=== PATIENT | female | born 1985 | race Two or more races ===

== ENCOUNTER 2025-01-11 14:08 | Outpatient (RCR) | payer MEDICAID, SELFPAY | END 2025-01-14 23:59 | disposition home or self-care (01) | LOC: SCTC 14:08 | PROVIDERS: PCP Internal Medicine; Referring Provider Internal Medicine; Visit Provider Nurse Practitioner Family | DX: R74.8 Abnormal levels of other serum enzymes (principal); D75.1 Secondary polycythemia; E66.9 Obesity, unspecified; Z68.42 Body mass index [BMI] 45.0-49.9, adult | CPT/HCPCS: 99212; G0463 ==

== ENCOUNTER 2025-03-25 12:47 | Emergency (ER) | payer MEDICAID, SELFPAY ==
[2025-03-25 12:50] VITALS: BMI 50.1
--- NOTE | 2025-03-25 12:51 | EKG_ITS ---
[facility] Test Date: 2025-03-25 Pat Name: ANDREI SCOTT Department: Room: - Gender: Female System Trainer: : 1985 Requested By: Bishop Medina Order Number: [id number] Reading MD: Bishop Medina Measurements Intervals [place] Rate: 70 P: 38 GA: 146 QRS: 4 QRSD: 83 T: 24 QT: 431 QTc: 466 Interpretive Statements SINUS RHYTHM No previous ECG available for comparison /store/S0/[id number]/[id number].pdf
--- NOTE | 2025-03-25 12:52 | PC.NURSE ---
MRU called to MRI for allergic reaction to MRI contrast, per tech states after he gave patient Contrast, patient c/o alma. hands and face numbness and tingling, upon arrival, patient talking full sentences c/o sob, patient is an outpatient, Brought patient to ER Room 16 for evaluation, Dr. Medina called to bedside.
--- NOTE | 2025-03-25 12:56 | EDNOTE_ITS ---
ED General RME/HPI General Chief complaint: Allergic Reaction Stated complaint: allergic react. to mri contrast, sob, numbness Time Seen by Provider: 03/25/25 12:53 Arrival date/time: 03/25/25 12:47 RME / HPI RME / HPI narrative: DR. LIZAMA MAIN ED EVALUATION: Patient is a 40-year-old who comes to the ER by our staff who got called to the MRI machine for the patient an acute allergic reaction. She was getting a liver scan which was not able to be completed because of the reaction. She has got some upper airway symptoms but no stridor she is got some irritation of her face and redness of her face. No other complaint or problem. She is evidently got some issues with her liver but no cancer and is followed by Is working this up at this time. No fever vomiting diarrhea no other complaints or problems. Related Data Home Medications ?Medication ?Instructions ?Recorded ?Confirmed ciprofloxacin HCl 500 mg tablet 500 mg PO BID 12/27/23 12/27/23 elagolix 150 mg tablet (Orilissa) 150 mg PO DAILY 12/1512/27/23 ergocalciferol (vitamin D2) 1,250 1,250 mcg PO QWEEK 0 12/27/23 12/27/23 mcg (50,000 unit) capsule phenazopyridine 200 mg tablet 200 mg PO BID PRN dysuri a 12/27/23 12/27/23 semaglutide 0.25 mg or 0.5 mg (2 0.25 mg subcut QWEEK 12/27/23 12/27/23 mg/3 mL) subcutaneous pen injector (Ozempic) Previous Rx's ?Medication ?Instructions ?Recorded diphenhydramine HCl 25 mg capsule 50 mg (2 x 25 mg) PO Q6H allergic 03/25/25 reaction 3 days #30 caps prednisone 20 mg tablet 40 mg (2 x 20 mg) PO QDAY al lergic 03/25/25 reaction 5 days #10 tabs Allergies Allergy/AdvReac Type Severity Reaction Status Date / Time No Known Allergies Allergy Verified 01/20/22 09:21 Review of Systems Review of Systems Systems Reviewed: All systems reviewed, normal except as documented Past Medical History Past Medical History ENDOCRINE: Positive Endocrine Disorders HEMATOLOGIC: Positive Blood Disorders Family History FAMILY HISTORY: Positive Family Cancer Social History SMOKING STATUS: Never smoker SUBSTANCE USE: does not use ALCOHOL: Never ED Exam Narrative Physical exam: Physical Exam: General: The vital signs were reviewed. I was asked to go into room 16 status for the patient having acute allergic reaction to the contrast dye for an MRI doing a outpatient workup for her liver. Patient got some mild erythroderma of her face she is got some mild hoarseness or dysphonia to her speech but she has no stridor. Her lungs have no obvious wheezing at this time. There is no hives on her skin on her body. The patient is non-toxic, in no apparent distress and appears healthy with a patent airway, no respiratory distress and has no apparent circulatory problems. Head & Scalp: Normocephalic, atraumatic. Face: Appears normal and is without lesions, deformity. Ears: Left external pinna appears normal. Right external pinna appears normal. Eyes: The sclera is anicteric. No obvious photophobia. The Left and Right Orbit/Lid/Conjunctiva appears normal without swelling, discoloration or injection. Nose: The nose is without deformity, discharge or tenderness; Throat: Appears normal. The mucous membranes are pink and moist without exudates, redness or mass seen. The tongue appears normal. Neck: The neck is supple and no apparent mass or adenopathy. Chest: The chest wall is normal in size and symmetry and has no chest wall tenderness or crepitus. The patient displays normal ventilator effort without retractions, accessory muscle use and has adequate air movement bilaterally with no wheezes and no rales. Cardiovascular: Regular rate and rhythm; No murmurs, rubs, or gallops; Gastrointestinal: The abdomen appears normal. No obvious hernias or mass. The abdomen is soft and benign, non-distended, with no pain, no guarding and no rebound tenderness. Bowel sounds are present and normal sounding. No CVA tenderness. Genitourinary: Back/Spine: Extremities/Musculoskeletal/lymphatic: The bilateral upper and lower extremities are warm. There is no evidence of arterial insufficiency. There is no evidence of venous insufficiency/edema. The patient spontaneously moves bilateral upper and lower extremities with no pain and no limitation of movement. There is no apparent, injury or trauma. Skin: The skin is warm, dry and intact. No rashes. No petechia. No purpura. No abnormal bruising. The color is appropriate with no cyanosis. Mental status/Psychiatric: Mental status is appropriate for age. The patient has no apparent delusions, visual hallucinations, no apparent audible hallucinations. The patient has no apparent suicidal thoughts/ideation and no apparent homicidal thoughts/ideation. Neurological: The patient is awake, alert, interactive, cordial, cooperative and is oriented to name and situation. The patient follows commands and answers historical question with no impairment. There is no visual disturbance apparent. The pupils are equal and reactive bilaterally with normal eye movements and no diplopia The bilateral upper and lower extremities have normal strength, normal range of motion and normal functioning. The gait, station and balance were not tested due to acuity Course Quality Measures none Orders Category Date Time Status EKG (ED ONLY) *Do not use* NOW Care 03/25/25 12:52 Completed EKG (ED Only) Stat Exams 03/25/25 12:51 Draft DiphenhydrAMINE INJ [Benadryl Inj] Med 03/25/25 12:49 Discontinued 50 mg IVP X1 ONE EPINEPHrine Inj [Adrenalin Inj] Med 03/25/25 12:54 Discontinued 0.4 mg SC X1 ONE MethylPREDNISolone.* [SoluMEDROL Inj] Med 03/25/25 12:49 Discontinued 125 mg IVP X1 ONE Vital Signs Vital signs: Vital Signs Temperature 97.7 F 03/25/25 12:57 Pulse Rate 78 03/25/25 12:57 Respiratory Rate 24 H 03/25/25 12:57 Blood Pressure 166/86 H 03/25/25 12:57 Pulse Oximetry (%) 95 03/25/25 12:57 Oxygen Delivery Method Nasal Cannula 03/25/25 12:57 Oxygen Flow Rate 6 03/25/25 12:57 Critical Care Time Critical Care Time Critical Care Time: Yes Total Critical Care Time (min.): 40 Attestation: The high probability of sudden, clinically significant deterioration in the p atient's condition required the highest level of my preparedness to intervene urgently. The services I provided to this patient were to treat and/or prevent clinically significant deterioration. Services included the following: chart data review, reviewing nursing notes and/or old charts, documentation time, reporting consultant collaboration regarding findings and treatment options, medication orders and management, direct patient care, vital sign assessments and ordering, interpreting and reviewing diagnostic studies and lab tests. Aggregate critical care time includes only time during which I was engaged in work directly related to the patient's care, as described above, whether at bedside or elsewhere in the Emergency Department. It did not include time spent performing other reported procedures or the services of residents, students, nurses or physician assistants. Discharge Plan Plan Patient Disposition: HOME (Self Care) Prescriptions/Referrals Prescriptions/Med Rec: New prednisone 20 mg tablet 40 mg PO QDAY 5 Days Qty: 10 0RF diphenhydramine HCl 25 mg capsule 50 mg PO Q6H 3 Days Qty: 30 0RF Rx Instructions: Use diphenhydramine for 3 days as directed and stop. If if worse with rash, hoarse voice , or tongue or throat swelling, then restart and consult your doctor. No Action phenazopyridine 200 mg tablet 200 mg PO BID PRN (Reason: dysuria) Patient Comments: TAKE 1 TABLET BY MOUTH TWICE A DAY AFTER MEALS NEEDED ciprofloxacin HCl 500 mg tablet 500 mg PO BID Patient Comments: TAKE 1 TABLET BY MOUTH EVERY 12 HOURS ergocalciferol (vitamin D2) 1,250 mcg (50,000 unit) capsule 1,250 mcg PO QWEEK Patient Comments: TAKE 1 CAPSULE BY MOUTH ONE TIME PER WEEK Rx Instructions: thursday Orilissa 150 mg tablet 150 mg PO DAILY Patient Comments: TAKE 1 TABLET BY MOUTH EVERY DAY Ozempic 0.25 mg or 0.5 mg (2 mg/3 mL) pen injector 0.25 mg SUBCUT QWEEK Patient Comments: INJECT (0.25MG) SUBCUTANEOUSLY ONE TIME PER WEEK ON THE SAME DAY OF EACH WEEK Rx Instructions: thursday Referrals: No Primary/Family,Physician [Primary Care Provider] - In 1 week Problem List Clinical Impression: Acute allergic reaction Impression comment: Acute allergic reaction to gadolinium dye at the MRI machine Patient/Caregiver Discharge Instructions Additional Instructions: Please documented today you had an allergic reaction to gadolinium which is the contrast dye used for MRI. Contact your doctor inform him/her of your reaction so they can document your medical record and they can also reschedule the proper imaging to complete your workup As discussed take your Benadryl and your prednisone as directed for a minimum of 3 days. If you are doing well you can stop everything and if your rash or symptoms return restart your medications for final 2 days and recontact your doctor for reevaluation. If you are getting worse in any way please return to the emergency department for reevaluation Print Language: Kittitian MDM Narrative [facility] hospital course: Patient is 40-year-old who comes in acutely for acute allergic reaction after given contrast dye for MRI that has some upper airway symptoms and facial air erythroderma. She is getting epi subcu Benadryl and Solu-Medrol and will reevaluate and observe. Does not appear to be ill in any other way at this time. Patient was reevaluated several times and she was much improved and at 1450 hrs. she is ambulate in the halls her face is no longer red she has no rash she has no change in her voice. And she feels much better.. She has had acute allergic reaction to the contrast dye for MRI scan. Patient was advised to contact her doctor to reschedule the scan but not to take the contrast and make sure he that information is inputted into her medical record. Estrellita Tierney am scribing for and in the presence of Dr. Lizama. Clinical Information Provided by patient Medical Records Reviewed [facility] Meds/Rx Considered, not Ordered None Labs/Rad/Tests considered, not Ordered None Chronic Illness/Social Conditions Add or document further as needed: She is evidently got some issues with her liver but no cancer and is followed by Is working this up at this time. EKG EKG Interpretation narrative: My interpretation: EKG performed at 1300 hours, sinus rhythm, rate 70, no STEMI Lab Interpretation Labs: none Imaging Imaging interpretation: none Medication Administration(s) Medication Administration History Discontinued Medications Diphenhydramine HCl (Diphenhydramine Inj 50 Mg/Ml Vial) 50 mg IVP X1 ONE Stop: 03/25/25 12:50 Last Admin: 03/25/25 12:58 Dose: 50 mg Documented By: GM Epinephrine HCl (Epinephrine Inj 1 Mg/Ml Amp) 0.4 mg SC X1 ONE Stop: 03/25/25 12:55 Last Admin: 03/25/25 13:11 Dose: 0.4 mg Documented By: GM Methylprednisolone Sodium Succinate (Methylprednisolone Sod Succ 62.5 Mg/Ml 2ml Vial) 125 mg IVP X1 ONE Stop: 03/25/25 12:50 Last Admin: 03/25/25 12:59 Dose: 125 mg Documented By: Diagnosis Differential dx and/or dx ruled out: Allergic reaction to contrast agent, allergic reaction to medication, and idiopathic urticaria/angioedema. Most likely dx, and/or detailed dx discussion: Acute allergic reaction Dispositon Disposition: Discharge Home
[2025-03-25 12:57] VITALS: BP 166/86; PULSE 78; RESP 24; TEMP 36.5; O2SAT 95
[2025-03-25] MEDS: MethylPREDNISolone SOD SUCC 62.5 MG/ML 2ML VIAL 125 MG IVP (12:59)
--- NOTE | 2025-03-25 13:08 | PC.NURSE ---
PT FROM MRU; PT WAS IN MRI AND PER PT, WHEN THEY GAVE ME THE CONTRAST, MY FACE STARTED TO FEEL NUMB AND MY HANDS; AND THEN THEY FELT HOT & TINGLY. UPON ARRIVAL, GENERAL REDNESS NOTED TO FACE, BILAT. ARMS, AND CHEST. PT REPORTS HAVING TROUBLE SPEAKING EARLIER BUT IS ABLE TO SPEAK IN FULL SENTENCES NOW. PT DENIES SOB AT THIS TIME. DR. LIZAMA AT BEDSIDE.
[2025-03-25 13:11] VITALS: BP 166/86; PULSE 73
[2025-03-25] MEDS: EPINEPHrine INJ 1 MG/ML AMP 0.4 MG SC (13:11)
[2025-03-25 13:57] VITALS: BP 115/56; PULSE 80; RESP 24; TEMP 36.5; O2SAT 98
--- NOTE | 2025-03-25 14:54 | PC.NURSE ---
PT'S REDNESS TO FACE, BILAT. ARMS, AND CHEST NO LONGER PRESENT AT THIS TIME.
[2025-03-25 15:28] VITALS: BP 117/74; PULSE 90; RESP 16; TEMP 36.6; O2SAT 96
== END 2025-03-25 15:31 | disposition home or self-care (01) ==
PROVIDERS: Emergency Provider Emergency Medicine
DX: R06.02 Shortness of breath (principal); R20.0 Anesthesia of skin; L27.0 Generalized skin eruption due to drugs and medicaments taken internally; T50.8X5A Adverse effect of diagnostic agents, initial encounter; Y92.538 Other ambulatory health services establishments as the place of occurrence of the external cause
CPT/HCPCS: 93005; 96372; 96374; 96375; 99283; J0166; J1200; J2919

== ENCOUNTER → 2025-03-25 | Outpatient (CLI) | payer MEDICAID, SELFPAY ==
[2025-03-24 18:01] LABS: HCG Qualitative,Urine Negative
--- NOTE | 2025-03-25 12:00 | XR_ITS ---
Examination: MRI abdomen with intravenous contrast. MRI abdomen without intravenous contrast. Date and time of exam: March 25, 2025, 1213 hours INDICATIONS: Diagnosis polycythemia, abnormal coagulation profile, numbness in the face and hands syncope after contrast administration, elevated liver enzymes on laboratory examination 2 months ago Technique: Multiple axial, sagittal and coronal sections of the abdomen obtained. Transverse images, TR 6020, TE 107. T1 weighted transverse images, TR 582, TE 9.5. T2-weighted sagittal images, TR 4000, TE 105. T2-weighted sagittal images, TR 4000, TE 5. Coronal images, TR 4210, TE 107. Axial and coronal images are obtained post 19 cc intravenous injection, gadolinium. Findings: Hepatomegaly 20 cm No focal liver lesions Postcontrast images demonstrate no abnormal enhancing liver lesion No intra or extrahepatic biliary tract dilatation No gallstones. Gallbladder wall does not appear thickened Common bile duct common hepatic duct 2 mm no common bile duct or common hepatic duct stones No pancreatic edema No hydronephrosis Aorta normal size No ascites No abdominal lymphadenopathy Spleen not enlarged IMPRESSION: No liver lesions, there is hepatomegaly 20 cm No intra or extra hepatic biliary tract dilatation Normal gallbladder. Normal common bile duct Negative for ascites Negative for abdominal lymphadenopathy
== END | disposition home or self-care (01) ==
LOC: SMRI 11:32
PROVIDERS: PCP Nurse Practitioner Family; Referring Provider Nurse Practitioner Family; Visit Provider Nurse Practitioner Family
DX: R79.1 Abnormal coagulation profile (principal); Z32.00 Encounter for pregnancy test, result unknown
CPT/HCPCS: 74183; 81025; A9579